=== PATIENT | female | born 1950 | race Caucasian/White ===

== ENCOUNTER → 2017-07-03 | Outpatient (CLI) | payer OTHER ==
[~2017-07-03] MED LIST: CEFTIN500 MG PO; PRINIVIL5 MG PO
== END ==
LOC: MC.RAD 07:00
DX: Z12.31 Encounter for screening mammogram for malignant neoplasm of breast (principal)

== ENCOUNTER → 2018-07-06 | Outpatient (CLI) | payer OTHER | LOC: MC.RAD 07:00 | DX: Z12.31 Encounter for screening mammogram for malignant neoplasm of breast (principal) ==

== ENCOUNTER → 2019-07-08 | Outpatient (CLI) | payer OTHER | LOC: MC.RAD 07:00 | DX: Z12.31 Encounter for screening mammogram for malignant neoplasm of breast (principal); N63.10 Unspecified lump in the right breast, unspecified quadrant ==

== ENCOUNTER → 2019-07-13 | Outpatient (CLI) | payer OTHER | LOC: MC.RAD 10:47 | DX: N63.10 Unspecified lump in the right breast, unspecified quadrant (principal) ==

== ENCOUNTER → 2019-07-14 | Outpatient (CLI) | payer OTHER | LOC: MC.RAD 06:49 | DX: N63.10 Unspecified lump in the right breast, unspecified quadrant (principal); Z98.82 Breast implant status ==

== ENCOUNTER 2019-07-21 08:24 | Day surgery (SDC) | payer OTHER ==
[~2019-07-21] VITALS: Ht 185.4 cm; Wt 77.0 kg
[2019-07-21 09:26] VITALS: BP 149/72; PULSE 100; TEMP 97.9
[2019-07-21] MEDS ORDERED: ZESTORETIC 12.51 TA1 PO (09:43)
[2019-07-21] MEDS ORDERED: CALCIUM 600MG+D1 TAB PO (09:44)
[2019-07-21] MEDS ORDERED: FOSAMAX 70MG TA70 MG PO (09:44)
[2019-07-21] MEDS ORDERED: ALL DAY ALLERGY PO (09:46)
[2019-07-21] MEDS ORDERED: ASPIRIN 32325 MG/TA1 PO (09:47)
[2019-07-21] MEDS ORDERED: NORCO 325 MG-51 TAB PO (13:15)
[2019-07-21 13:17] VITALS: BP 114/71; PULSE 73
--- NOTE | 2019-07-21 13:17 | NUR ---
Patient returns to room 6 per cart and is awake and alert. Temp 97.6 and room air sats 100%. Dressing dry on the right breast. Head of the cart elevated and IV fluids infusing. Siderails up x2 and call light. Spouse in room.
[2019-07-21 13:32] VITALS: BP 112/83; PULSE 69
--- NOTE | 2019-07-21 13:32 | NUR ---
Eating crackers and drinking water. Denies pain or nausea.
[2019-07-21 13:47] VITALS: BP 123/66; PULSE 75
--- NOTE | 2019-07-21 13:47 | NUR ---
Talking to spouse and denies pain or nausea.
--- NOTE | 2019-07-21 14:10 | NUR ---
IV discontinued. Sitting on edge of cart and dresses self.
--- NOTE | 2019-07-21 14:27 | NUR ---
Given dismissal instructions and voices understanding of these. Provided script for [facility]. Provided date and time for follow up appointment.
--- NOTE | 2019-07-21 14:30 | NUR ---
Patient dismissed to home driven by spouse and taken to the front door per wheelchair and assisted into car by RN and dismissal instructions in hand.
== END 2019-07-21 14:30 | disposition home or self-care (01) ==
LOC: SDCO 08:24
DX: D24.1 Benign neoplasm of right breast (principal); N60.91 Unspecified benign mammary dysplasia of right breast; I10 Essential (primary) hypertension; M81.0 Age-related osteoporosis without current pathological fracture; Z79.899 Other long term (current) drug therapy; Z79.82 Long term (current) use of aspirin; Z88.2 Allergy status to sulfonamides
CPT/HCPCS: J2250; J2405; J2704; J3010; J7120

== ENCOUNTER → 2020-07-24 | Outpatient (CLI) | payer OTHER ==
[~2020-07-24] MED LIST changes: +ALL DAY ALLERGY PO; +ASPIRIN 32325 MG/TA1 PO; +CALCIUM 600MG+D1 TAB PO; +FOSAMAX 70MG TA70 MG PO; +NORCO 325 MG-51 TAB PO; +ZESTORETIC 12.51 TA1 PO
== END ==
LOC: MC.RAD 07-10 07:15
DX: Z12.31 Encounter for screening mammogram for malignant neoplasm of breast (principal); Z98.82 Breast implant status

== ENCOUNTER → 2021-10-12 | Outpatient (CLI) | payer OTHER, MEDICARE | LOC: MC.RAD 09:08 | DX: Z12.31 Encounter for screening mammogram for malignant neoplasm of breast (principal) ==

== ENCOUNTER → 2022-10-29 | Outpatient (CLI) | payer MEDICARE, OTHER | LOC: MC.RAD 13:36 | DX: Z12.31 Encounter for screening mammogram for malignant neoplasm of breast (principal) ==

== ENCOUNTER → 2023-10-30 | Outpatient (CLI) | payer MEDICARE, OTHER | LOC: MC.RAD 12:46 | DX: Z12.31 Encounter for screening mammogram for malignant neoplasm of breast (principal) ==